=== PATIENT | female | born 1940 | race Caucasian/White ===

== ENCOUNTER → 2016-11-16 | Outpatient (CLI) | payer MEDICARE | END | disposition home or self-care (01) | LOC: PCVCIMAG 12:35 | PROVIDERS: ATTEND Internal Medicine | DX: I48.0 Paroxysmal atrial fibrillation (principal); I10 Essential (primary) hypertension; E78.5 Hyperlipidemia, unspecified; Z79.01 Long term (current) use of anticoagulants; Z95.2 Presence of prosthetic heart valve | CPT/HCPCS: 80061; 93005; 93306; G0463 ==

== ENCOUNTER → 2016-11-23 | Outpatient (CLI) | payer MEDICARE | END | disposition home or self-care (01) | LOC: PCVCIMAG 14:45 | PROVIDERS: ATTEND Internal Medicine | DX: I45.19 Other right bundle-branch block (principal); I35.0 Nonrheumatic aortic (valve) stenosis | CPT/HCPCS: 93017 ==

== ENCOUNTER → 2017-05-01 | Outpatient (CLI) | payer MEDICARE | END | disposition home or self-care (01) | LOC: PCVCCLINIC 14:30 | PROVIDERS: ATTEND Internal Medicine | DX: I35.0 Nonrheumatic aortic (valve) stenosis (principal); I48.0 Paroxysmal atrial fibrillation; I10 Essential (primary) hypertension; E78.5 Hyperlipidemia, unspecified; E11.9 Type 2 diabetes mellitus without complications; I44.7 Left bundle-branch block, unspecified; I65.23 Occlusion and stenosis of bilateral carotid arteries; Z95.4 Presence of other heart-valve replacement; Z88.8 Allergy status to other drugs, medicaments and biological substances; Z95.2 Presence of prosthetic heart valve; Z79.01 Long term (current) use of anticoagulants | CPT/HCPCS: 80061; 85610; 93005; G0463 ==

== ENCOUNTER → 2017-05-08 | Outpatient (CLI) | payer MEDICARE ==
[~2017-05-08] MED LIST: BENZOCAINE ONE 20% MUCOSAL SPRAY.; IOHEXOL 350 MG/ML 100 ML VIAL. ONE; IV NORMAL SALINE 1,000 ML BAG ONE; LIDOCAINE 1% 20 ML VIAL. ONE; MIDAZOLAM HCL/PF 2 MG/2 ML VIAL. ONE; fentaNYL PF VIAL 100 MCG/2 ML VIAL ONE
--- NOTE | 2017-05-08 10:16 | PCVCIMAG ---
APPROVED REPORT Study performed: 05/08/2017 09:05:20 EXAM: Comprehensive 2D, Doppler, and color-flow Echocardiogram Status: routine BSA: 1.86 HR: 60 bpmBP: 143/71 mmHg Other Information Study Quality: Good Indications Aortic Valve Disease Atrial Fibrillation Hypertension. Hyperlipidemia. Procedure After obtaining informed consent, patient underwent transesophageal echo in the [facility]. Type of Sedation : Conscious Sedation Sedation was administered by Adilene Venegas RN. Versed (3mg) Fentanyl (75mcg) Transesophageal probe was inserted and advanced into esophagus without difficulty by William Hunt MD. Echo enhancement agent administered: Agitated Saline The VALERIE was performed without complications. Throughout the procedure, the blood pressure, pulse oximetry, cardiac rhythm, and rate were monitored. The patient tolerated the procedure without adverse effects. Recovery from conscious sedation was uneventful and vital signs were stable. Left Ventricle The left ventricle is normal size. There is normal LV segmental wall motion. There is normal left ventricular wall thickness. The left ventricular systolic function is normal. The left ventricular ejection fraction is within the normal range. LVEF is 55-60%. Right Ventricle The right ventricle is normal size. The right ventricular systolic function is normal. Atria The left atrium size is mildly enlarged. No masses or clots in left atrium or appendage No shunting by contrast bubble injection The right atrium size is mildly enlarged Aortic Valve [facility] mechanical aortic valve is present. No aortic regurgitation is present. Severe [facility] mechanical stenosis by transthoracic gradients Mitral Valve Mild mitral annular calcification Mild mitral insufficiency No evidence of mitral valve stenosis. Tricuspid Valve The tricuspid valve is normal in structure. There is no tricuspid valve regurgitation noted. Pulmonic Valve The pulmonary valve is normal in structure. There is no pulmonic valvular regurgitation. Great Vessels The aortic root is normal in size. The ascending aorta is normal in size. Pericardium There is no pericardial effusion. <Conclusion> The left ventricular systolic function is normal. There is normal LV segmental wall motion. LVEF 55-60%. Both atria are mildly enlarged. No masses or clots in left atrium or appendage No shunting by contrast bubble injection [facility] [facility] mechanical aortic valve is present. No insufficiency. Severely stenotic by transthoracic gradients. Possibly thickened leaflets Mild mitral annular calcification Mild mitral insufficiency There is no pericardial effusion.
--- NOTE | 2017-05-08 18:08 | PCVCINTER ---
APPROVED REPORT Patient Details Patient Status: Out-Patient Room #: 1 The patient is a 77 year-old Female Event Personnel Theo Head RN, Rosa Tolbert RT(R), Riana Soto RT(R)() Indication Heart failure, Valvular heart disease Risk Factors Arterial HypertensionDysplipidemia (Type: 1), Hypercholesterolemia, Renal Failure, Last Creatanine 2.6Tobacco History (Never) Previous Procedures/Diagnoses Previous Valve Surgery, Valvular heart disease, Arrhythmias - Supraventricular tachycardias->Paroxysmal AF, PVD, Hypertension Procedure Narrative The patient was brought electively to the Cardiac Catheterization Laboratory and was prepped and draped in a sterile manner. The right femoral was infiltrated with 1% Lidocaine subcutaneous anesthesia. A 6 fr sheath was inserted into the right femoral artery. Coronary angiography was performed using coronary diagnostic catheters. The right coronary system was accessed and visualized with a JR4 Diagnostic catheter. The left coronary system was accessed and visualized with a JL4 Diagnostic catheter. Closure device was deployed with a 6 Fr Mynx. Hemostasis was obtained with manual pressure following sheath removal without any complications. The patient tolerated the procedure well and there were no complications associated with the procedure. There was no hematoma. Fluoro Time: 1.3 minutes Dose: 560 mGy Contrast Type and Amount: omni 350 35ml [place] Artery Percent Stenosis Left Main: 0 % Prox LAD: % Mid/Distal LAD: % Circumflex: % RCA: % Ramus: % Diagnostic Cath Left MainNormal LADNormal Diagonal 1Normal CircumflexNormal [id number] size, normal [id number], normal Right CoronaryDominant. Normal including PDA and PL branches Hemodynamics The aortic pressure is 130/42 mmHg with a mean of 71 mmHg. Conclusion 1. Severe mechanical prosthetic aortic stenosis 2. Normal coronary vasculature
== END | disposition home or self-care (01) ==
LOC: PCVCINTER 08:13
PROVIDERS: ATTEND Internal Medicine
DX: I38 Endocarditis, valve unspecified (principal); I35.8 Other nonrheumatic aortic valve disorders; E78.00 Pure hypercholesterolemia, unspecified; E78.5 Hyperlipidemia, unspecified; I13.0 Hypertensive heart and chronic kidney disease with heart failure and stage 1 through stage 4 chronic kidney disease, or unspecified chronic kidney disease; N18.9 Chronic kidney disease, unspecified; I48.91 Unspecified atrial fibrillation
CPT/HCPCS: 93312; 93325; 93454; C1760; C1769; C1894; J1644; J2250; J3010; J7030; Q9967

== ENCOUNTER → 2017-06-27 | Outpatient (CLI) | payer MEDICARE | END | disposition home or self-care (01) | LOC: PCVCCLINIC 14:05 | PROVIDERS: ATTEND Internal Medicine | DX: I48.1 Persistent atrial fibrillation (principal); I65.23 Occlusion and stenosis of bilateral carotid arteries; I12.0 Hypertensive chronic kidney disease with stage 5 chronic kidney disease or end stage renal disease; N18.6 End stage renal disease; I44.7 Left bundle-branch block, unspecified; Z95.2 Presence of prosthetic heart valve; Z99.2 Dependence on renal dialysis; Z79.01 Long term (current) use of anticoagulants; Z79.899 Other long term (current) drug therapy; Z88.8 Allergy status to other drugs, medicaments and biological substances | CPT/HCPCS: 93005; G0463 ==